=== PATIENT | female | born 1935 | race Caucasian/White ===

== ENCOUNTER 2018-07-08 08:45 | Inpatient (IN) | payer MEDICARE ==
[2018-07-02 15:37] LABS: ALBUMIN 3.6 G/DL (3.4-5.0); ALBUMIN/GLOBULIN RATIO 0.9 (1.1-1.5); ALKALINE PHOSPHATASE 87 IU/L (46-116); BLOOD UREA NITROGEN 24 MG/DL (7-18); BUN/CREATININE RATIO 16.4 (6.6-38.0); CALCIUM 9.3 MG/DL (8.5-10.1); CHLORIDE 105 MMOL/L (99-107); CREATININE 1.46 MG/DL (0.40-0.90); PRE OP ALT 67 U/L (30-65); PRE OP ANION GAP 10 (8-16); PRE OP AST 50 U/L (10-37); PRE OP BILIRUB, TOTAL 0.9 MG/DL (0.0-1.0); PRE OP GLUCOSE 124 MG/DL (70-104); PRE OP POTASSIUM 4.2 MMOL/L (3.4-5.1); PRE OP SODIUM 139 MMOL/L (135-145); TOTAL CARBON DIOXIDE 24.2 MMOL/L (24-32); TOTAL PROTEIN 7.6 G/DL (6.4-8.2); eGFR 34 ML/MIN
[~2018-07-08] VITALS: Ht 170.2 cm; Wt 103.0 kg
[2018-07-08] VITALS (16 sets, daily range): BP systolic 93–153; BP diastolic 48–73
[~2018-07-08 08:45] MED LIST: Cefazolin 2GM/50ML dext iso,osmotic IVPB IV ONE; DOCUMENT DATE & TIME OF BETA-BLOCKER PO ONE; FISH OIL 1,2001 EAC1 PO; FLEC50TA10 PO; LOP25T PO; NITR0.4T48 SL; SPIR25TA PO; UBID1CAP54 PO; famotidine 20mg tablet PO ONE; ringers solution, lacted 1,000 ML IV SCH; vancomycin inj 1,500 MG in normal saline 300ml IV soln IV ONE
[2018-07-08] MEDS ORDERED: tetracaine 1% (10mg/ml) pres. free inj. ONE (10:06)
[2018-07-08] MEDS ORDERED: ROPIVAcaine 0.5% (5mg/ml) 30ml vial ONE ×2 (10:06→10:10)
[2018-07-08] MEDS ORDERED: BUPIVAcaine/PF 7.5mg/ml (0.75%) 10ml vial ONE (10:06)
[2018-07-08] MEDS ORDERED: ketorolac trometh. 30mg/ml inj. ONE (10:10)
[2018-07-08] MEDS ORDERED: vancomycin 1,000mg inj ONE (10:10)
[2018-07-08 11:16] LABS: BASOPHILS % (AUTO) 0.3 % (0-1); EOSINOPHILS # (AUTO) 0.1 X10'3 (0-0.9); EOSINOPHILS % (AUTO) 1.5 % (0-6); HEMATOCRIT 40.4 % (35.0-45.0); LYMPHOCYTES # (AUTO) 1.3 X10'3 (1.1-4.8); LYMPHOCYTES % (AUTO) 26.9 % (21-51); MEAN CORPUSCULAR HEMOGLOBIN 32.6 PG (27.0-31.0); MEAN CORPUSCULAR HGB CONC 34.7 % (33.0-36.5); MEAN PLATELET VOLUME 7.9 FL (7.4-10.4); MONOCYTES # (AUTO) 0.4 X10'3 (0-0.9); MONOCYTES % (AUTO) 7.6 % (2-12); NEUTROPHILS # (AUTO) 3.2 X10'3 (1.8-7.7); NEUTROPHILS % (AUTO) 63.7 % (42-75); PLATELET COUNT 162 X10'3 (140-440); RED CELL DISTRIBUTION WIDTH 13.8 % (11.5-14.5)
[2018-07-08] MEDS ORDERED: diphenhydrAMINE 50 mg/ml inj ONE (12:03)
[2018-07-08] MEDS ORDERED: fentaNYL/PF 50MCG/1 ML 2ML syringe ONE (12:09)
[2018-07-08] MEDS ORDERED: MIDAZolam 1mg/ml 10ml vial ONE (12:09)
[2018-07-08] MEDS ORDERED: morphine /PF 1mg/ml 10ml inj. ONE (12:09)
[2018-07-08] MEDS ORDERED: ringers solution, lacted 1,000 ML IV SCH (12:53)
[2018-07-08] MEDS ORDERED: diphenhydrAMINE 50 mg/ml inj IV PRN (12:55)
[2018-07-08] MEDS ORDERED: morphine 4 MG/ML inj SYRINge IV PRN ×2 (12:55)
[2018-07-08] MEDS ORDERED: ondansetron/PF 4mg/2ml inj IV PRN ×3 (12:55→15:10)
[2018-07-08] MEDS ORDERED: fentaNYL/PF 50MCG/1 ML 2ML syringe IV PRN ×2 (12:55)
[2018-07-08] MEDS ORDERED: labetalol 5mg/ml 20ml inj. IV PRN (12:55)
[2018-07-08] MEDS ORDERED: hydrALAZINE 20mg/ml inj. IV PRN (12:55)
[2018-07-08] MEDS: potassium cl 20mEq in 1/2 NS 1,000 ML IV SCH (15:07)
[2018-07-08] MEDS ORDERED: bisacodyl 10mg suppository rectal RC PRN (15:10)
[2018-07-08] MEDS ORDERED: diphenhydrAMINE 25mg capsule PO PRN ×2 (15:10)
[2018-07-08] MEDS ORDERED: HYDROmorphone inj. 0.5 MG/0.5 ML DISP.SYRIN IV PRN ×2 (15:10)
[2018-07-08] MEDS ORDERED: magnesium hydroxide 30ml (MOM) UD suspension PO PRN (15:10)
[2018-07-08] MEDS ORDERED: nitroGLYCERIN 0.4mg SUBLingual tab SL PRN (15:10)
[2018-07-08] MEDS ORDERED: acetaminophen 325mg tablet PO PRN (15:10)
[2018-07-08] MEDS: ceFAZolin 1GM/D5W- ADD-VANTAGE 50 ML IV SCH (16:00)
[2018-07-08 18:10] LABS: CREATININE 1.14 MG/DL (0.40-0.90); POTASSIUM 5.3 MMOL/L (3.5-5.1); eGFR 46 ML/MIN
[2018-07-08] MEDS ORDERED: vancomycin/NS 1 GM ADD-VANTAGE 250 ML IV SCH (20:00)
[2018-07-08] MEDS: ketorolac tromethamine 15mg/ml inj. IV SCH (20:00)
[2018-07-08] MEDS: acetaminophen 325mg tablet PO SCH (20:00)
[2018-07-08] MEDS: sennosides 8.6mg tablet PO SCH (20:30)
[2018-07-08] MEDS: gabapentin 300mg capsule PO SCH (20:30)
[2018-07-09] MEDS: ceFAZolin 1GM/D5W- ADD-VANTAGE 50 ML IV SCH (00:04)
[2018-07-09 02:00] VITALS: BP 108/54
[2018-07-09] MEDS: acetaminophen 325mg tablet PO SCH ×4 (02:34→20:23)
[2018-07-09] MEDS: ketorolac tromethamine 15mg/ml inj. IV SCH ×3 (02:34→14:11)
[2018-07-09] MEDS: potassium cl 20mEq in 1/2 NS 1,000 ML IV SCH ×4 (02:41→23:07)
[2018-07-09 05:24] LABS: BASOPHILS % (AUTO) 0 % (0-1); EOSINOPHILS # (AUTO) 0.1 X10'3 (0-0.9); EOSINOPHILS % (AUTO) 1.2 % (0-6); HEMOGLOBIN 12.6 g/dl (12.0-16.0); LYMPHOCYTES # (AUTO) 0.5 X10'3 (1.1-4.8); LYMPHOCYTES % (AUTO) 5.8 % (21-51); MEAN CORPUSCULAR HEMOGLOBIN 32.1 PG (27.0-31.0); MEAN CORPUSCULAR HGB CONC 33.9 % (33.0-36.5); MEAN CORPUSCULAR VOLUME 94.5 FL (78-98); MEAN PLATELET VOLUME 7.8 FL (7.4-10.4); MONOCYTES # (AUTO) 0.4 X10'3 (0-0.9); MONOCYTES % (AUTO) 4.8 % (2-12); NEUTROPHILS # (AUTO) 8.3 X10'3 (1.8-7.7); NEUTROPHILS % (AUTO) 88.2 % (42-75); PLATELET COUNT 138 X10'3 (140-440); RED BLOOD COUNT 3.92 X10'6 (4.20-5.60); RED CELL DISTRIBUTION WIDTH 13.6 % (11.5-14.5); WHITE BLOOD COUNT 9.4 X10'3 (4.5-11.0)
[2018-07-09] MEDS: oxyCODONE IR 5mg (immed. release) tablet PO PRN ×4 (05:40→16:49)
[2018-07-09 05:44] LABS: ANION GAP 7 (8-16); CHLORIDE 108 MMOL/L (99-107); SODIUM 138 MMOL/L (135-145); TOTAL CARBON DIOXIDE 23.1 MMOL/L (24-32)
[2018-07-09 06:00] VITALS: BP 108/57
[2018-07-09 06:10] LABS: POTASSIUM 6.1 MMOL/L (3.5-5.1)
[2018-07-09] MEDS ORDERED: FATTY ACIDS PO SCH (08:00)
[2018-07-09] MEDS ORDERED: FISH OIL PO SCH (08:00)
[2018-07-09] MEDS: spironolactone 25 MG tablet PO SCH (08:00)
[2018-07-09] MEDS: metoprolol tartrate 50mg tablet PO SCH (08:00)
[2018-07-09] MEDS: flecainide 50mg tablet PO SCH (08:00)
[2018-07-09] MEDS ORDERED: OMEGA PO SCH (08:00)
[2018-07-09] MEDS: gabapentin 300mg capsule PO SCH ×3 (08:19→20:23)
[2018-07-09] MEDS: aspirin 325mg tablet PO SCH (08:19)
[2018-07-09 10:00] VITALS: BP 104/38
[2018-07-09 15:00] VITALS: BP 111/34
[2018-07-09 18:00] VITALS: BP 110/47
[2018-07-09] MEDS ORDERED: celeCOXIB 100mg capsule PO SCH (20:00)
[2018-07-09] MEDS: celeCOXIB 100mg capsule PO SCH (20:23)
[2018-07-09] MEDS: sennosides 8.6mg tablet PO SCH (20:23)
[2018-07-09 22:00] VITALS: BP 111/52
[2018-07-10] MEDS: acetaminophen 325mg tablet PO SCH ×3 (02:00→13:58)
[2018-07-10] MEDS: oxyCODONE IR 5mg (immed. release) tablet PO PRN ×4 (05:31→17:50)
[2018-07-10 05:46] LABS: BASOPHILS % (AUTO) 0.2 % (0-1); EOSINOPHILS # (AUTO) 0.1 X10'3 (0-0.9); EOSINOPHILS % (AUTO) 2.1 % (0-6); HEMATOCRIT 28.2 % (35.0-45.0); HEMOGLOBIN 9.7 g/dl (12.0-16.0); LYMPHOCYTES # (AUTO) 1.6 X10'3 (1.1-4.8); LYMPHOCYTES % (AUTO) 24.3 % (21-51); MEAN CORPUSCULAR HEMOGLOBIN 32.4 PG (27.0-31.0); MEAN CORPUSCULAR HGB CONC 34.3 % (33.0-36.5); MEAN CORPUSCULAR VOLUME 94.6 FL (78-98); MEAN PLATELET VOLUME 7.7 FL (7.4-10.4); MONOCYTES # (AUTO) 0.7 X10'3 (0-0.9); MONOCYTES % (AUTO) 11.1 % (2-12); NEUTROPHILS # (AUTO) 4.2 X10'3 (1.8-7.7); NEUTROPHILS % (AUTO) 62.3 % (42-75); PLATELET COUNT 110 X10'3 (140-440); RED BLOOD COUNT 2.98 X10'6 (4.20-5.60); RED CELL DISTRIBUTION WIDTH 13.8 % (11.5-14.5); WHITE BLOOD COUNT 6.7 X10'3 (4.5-11.0)
[2018-07-10 06:00] VITALS: BP 128/50
[2018-07-10] MEDS: spironolactone 25 MG tablet PO SCH (07:28)
[2018-07-10] MEDS: metoprolol tartrate 50mg tablet PO SCH (07:38)
[2018-07-10] MEDS: aspirin 325mg tablet PO SCH (07:38)
[2018-07-10] MEDS: gabapentin 300mg capsule PO SCH ×3 (07:39→20:20)
[2018-07-10] MEDS: celeCOXIB 100mg capsule PO SCH ×2 (07:39→20:20)
[2018-07-10] MEDS: flecainide 50mg tablet PO SCH (07:40)
[2018-07-10 10:00] VITALS: BP 116/55
[2018-07-10] MEDS ORDERED: acetaminophen 325mg tablet PO PRN (15:10)
[2018-07-10 18:00] VITALS: BP 102/47
[2018-07-10] MEDS: sennosides 8.6mg tablet PO SCH (20:20)
[2018-07-10 21:00] VITALS: BP 124/53
[2018-07-11] MEDS: oxyCODONE IR 5mg (immed. release) tablet PO PRN ×3 (02:12→12:11)
[2018-07-11 05:48] LABS: BASOPHILS % (AUTO) 0.4 % (0-1); EOSINOPHILS # (AUTO) 0.2 X10'3 (0-0.9); EOSINOPHILS % (AUTO) 2.3 % (0-6); HEMATOCRIT 31.6 % (35.0-45.0); HEMOGLOBIN 10.8 g/dl (12.0-16.0); LYMPHOCYTES # (AUTO) 1.4 X10'3 (1.1-4.8); LYMPHOCYTES % (AUTO) 21.5 % (21-51); MEAN CORPUSCULAR HEMOGLOBIN 32.4 PG (27.0-31.0); MEAN CORPUSCULAR HGB CONC 34.2 % (33.0-36.5); MEAN CORPUSCULAR VOLUME 94.8 FL (78-98); MONOCYTES # (AUTO) 0.6 X10'3 (0-0.9); MONOCYTES % (AUTO) 9.3 % (2-12); NEUTROPHILS # (AUTO) 4.3 X10'3 (1.8-7.7); NEUTROPHILS % (AUTO) 66.5 % (42-75); PLATELET COUNT 124 X10'3 (140-440); RED BLOOD COUNT 3.33 X10'6 (4.20-5.60); RED CELL DISTRIBUTION WIDTH 13.6 % (11.5-14.5); WHITE BLOOD COUNT 6.5 X10'3 (4.5-11.0)
[2018-07-11 06:00] VITALS: BP 126/47
[2018-07-11] MEDS: celeCOXIB 100mg capsule PO SCH (07:57)
[2018-07-11] MEDS: aspirin 325mg tablet PO SCH (07:58)
[2018-07-11] MEDS: gabapentin 300mg capsule PO SCH (07:58)
[2018-07-11] MEDS: metoprolol tartrate 50mg tablet PO SCH (07:58)
[2018-07-11] MEDS: spironolactone 25 MG tablet PO SCH (07:58)
[2018-07-11] MEDS: flecainide 50mg tablet PO SCH (07:58)
[2018-07-11 10:00] VITALS: BP 135/45
== END 2018-07-11 12:45 | DRG 470 ==
LOC: PAS IN 08:45 → EDSTATUS 12:00 → ORTHO 4S 16:15
PROVIDERS: ADMIT Orthopaedic Surgery; ATTEND Orthopaedic Surgery
PROC: 3E0T3BZ Introduction of Anesthetic Agent into Peripheral Nerves and Plexi, Percutaneous Approach (ICD-10-PCS; 2018-07-08)
PROC: 8E0YXCZ Robotic Assisted Procedure of Lower Extremity (ICD-10-PCS; 2018-07-08)
PROC: 8E0YXBZ Computer Assisted Procedure of Lower Extremity (ICD-10-PCS; 2018-07-08)
PROC: 0SRC0J9 Replacement of Right Knee Joint with Synthetic Substitute, Cemented, Open Approach (ICD-10-PCS; principal; 2018-07-08 12:03)
DX: M17.11 Unilateral primary osteoarthritis, right knee (principal); D62 Acute posthemorrhagic anemia; Z96.611 Presence of right artificial shoulder joint; G47.30 Sleep apnea, unspecified; I48.2 Chronic atrial fibrillation; M47.816 Spondylosis without myelopathy or radiculopathy, lumbar region; K21.9 Gastro-esophageal reflux disease without esophagitis; I12.9 Hypertensive chronic kidney disease with stage 1 through stage 4 chronic kidney disease, or unspecified chronic kidney disease; Z60.2 Problems related to living alone; E87.5 Hyperkalemia; N18.3 Chronic kidney disease, stage 3 (moderate); Z91.041 Radiographic dye allergy status; Z88.5 Allergy status to narcotic agent; Z88.8 Allergy status to other drugs, medicaments and biological substances; Z91.048 Other nonmedicinal substance allergy status; Z72.89 Other problems related to lifestyle; Z79.899 Other long term (current) drug therapy; Z95.810 Presence of automatic (implantable) cardiac defibrillator
CPT/HCPCS: 36415; 80051; 80053; 82565; 84132; 85025; 87070; 97110; 97116; 97162; 97530; A6455; A7000; C1713; C1758; C1776; J0690; J1200; J1885; J2250; J2274; J2795; J3010; J3370; J3490; J7030; J7120

== ENCOUNTER 2018-08-21 11:27 | Observation (INO) | payer MEDICARE ==
[~2018-08-21] VITALS: Ht 171.4 cm; Wt 101.8 kg
[~2018-08-21 11:27] MED LIST changes: -Cefazolin 2GM/50ML dext iso,osmotic IVPB IV ONE; -DOCUMENT DATE & TIME OF BETA-BLOCKER PO ONE; -UBID1CAP54 PO; -famotidine 20mg tablet PO ONE; -ringers solution, lacted 1,000 ML IV SCH; -vancomycin inj 1,500 MG in normal saline 300ml IV soln IV ONE
[2018-08-21 12:00] LABS: HEMOGLOBIN 12.6 g/dl (12.0-16.0); MEAN CORPUSCULAR HEMOGLOBIN 31.8 PG (27.0-31.0); MEAN CORPUSCULAR HGB CONC 34.1 % (33.0-36.5); MEAN CORPUSCULAR VOLUME 93.2 FL (78-98); MEAN PLATELET VOLUME 7.7 FL (7.4-10.4); NEUTROPHILS % (AUTO) 71.8 % (42-75); PLATELET COUNT 184 X10'3 (140-440); RED BLOOD COUNT 3.96 X10'6 (4.20-5.60); RED CELL DISTRIBUTION WIDTH 13.7 % (11.5-14.5); WHITE BLOOD COUNT 5.5 X10'3 (4.5-11.0)
[2018-08-21 12:01] LABS: BASOPHILS # (AUTO) 0.1 X10'3 (0-0.2); BASOPHILS % (AUTO) 1.6 % (0-1); EOSINOPHILS # (AUTO) 0.1 X10'3 (0-0.9); EOSINOPHILS % (AUTO) 1.3 % (0-6); LYMPHOCYTES # (AUTO) 1.1 X10'3 (1.1-4.8); LYMPHOCYTES % (AUTO) 19.6 % (21-51); MONOCYTES # (AUTO) 0.3 X10'3 (0-0.9); MONOCYTES % (AUTO) 5.7 % (2-12); NEUTROPHILS # (AUTO) 3.9 X10'3 (1.8-7.7)
[2018-08-21 12:09] LABS: ALANINE AMINOTRANSFERASE 28 U/L (12-78); ALBUMIN 3.2 G/DL (3.4-5.0); ALBUMIN/GLOBULIN RATIO 0.8 (1.1-1.5); ALKALINE PHOSPHATASE 107 IU/L (46-116); ANION GAP 7 (8-16); ASPARTATE AMINO TRANSFERASE 29 U/L (10-37); BILIRUBIN,TOTAL 0.7 MG/DL (0.1-1.0); BLOOD UREA NITROGEN 21 MG/DL (7-18); BUN/CREATININE RATIO 14.7 (6.6-38.0); CALCIUM 9.1 MG/DL (8.5-10.1); CHLORIDE 107 MMOL/L (99-107); CREATININE 1.43 MG/DL (0.40-0.90); POTASSIUM 5.2 MMOL/L (3.5-5.1); SODIUM 142 MMOL/L (135-145); TOTAL CARBON DIOXIDE 27.6 MMOL/L (24-32); eGFR 35 ML/MIN
[2018-08-21 12:13] LABS: D-DIMER 28.94 MG/L FEU (0-0.50); INR 1.1 INR; PARTIAL THROMBOPLASTIN TIME 25 SECONDS (22-32); PROTHROMBIN TIME 11.4 SECONDS (9.0-12.0)
[2018-08-21 12:18] LABS: GLUCOSE 111 MG/DL (70-104)
[2018-08-21] MEDS ORDERED: enoxaparin 100mg/ml syringe SUBCUT ONE (12:20)
[2018-08-21] MEDS ORDERED: magnesium hydroxide 30ml (MOM) UD suspension PO PRN (13:30)
[2018-08-21] MEDS ORDERED: potassium Cl 40MEQ/NS 500ml 500 ML IV PRN ×2 (13:30)
[2018-08-21] MEDS ORDERED: magnesium 4gm in 100ml NS 100 ML IV PRN (13:30)
[2018-08-21] MEDS ORDERED: mag hydrox/Alum hydrox/simeth 30ml oral suspension PO PRN (13:30)
[2018-08-21] MEDS ORDERED: potassium Cl 20 mEq SR tablet PO PRN ×2 (13:30)
[2018-08-21] MEDS ORDERED: ondansetron/PF 4mg/2ml inj IV PRN (13:30)
[2018-08-21] MEDS ORDERED: acetaminophen 325mg tablet PO PRN (13:30)
[2018-08-21] MEDS ORDERED: magnesium Cl slow-release 64mg tablet PO PRN (13:30)
[2018-08-21] MEDS ORDERED: magnesium 1gm/100ml D5W IVPB 100 ML IV PRN (13:30)
[2018-08-21 16:00] VITALS: BP 173/64
[2018-08-21] MEDS ORDERED: nitroGLYCERIN 0.4mg SUBLingual tab SL PRN (19:45)
[2018-08-21 20:00] VITALS: BP 133/60
[2018-08-21] MEDS: enoxaparin 100mg/ml syringe SQ SCH (20:37)
[2018-08-22] VITALS: BP 141/63
[2018-08-22 05:34] LABS: EOSINOPHILS # (AUTO) 0.1 X10'3 (0-0.9); EOSINOPHILS % (AUTO) 2.5 % (0-6); HEMATOCRIT 35.3 % (35.0-45.0); HEMOGLOBIN 12.1 g/dl (12.0-16.0); LYMPHOCYTES # (AUTO) 1.4 X10'3 (1.1-4.8); LYMPHOCYTES % (AUTO) 30.4 % (21-51); MEAN CORPUSCULAR HGB CONC 34.4 % (33.0-36.5); MEAN PLATELET VOLUME 8.3 FL (7.4-10.4); MONOCYTES # (AUTO) 0.3 X10'3 (0-0.9); MONOCYTES % (AUTO) 6.1 % (2-12); NEUTROPHILS # (AUTO) 2.7 X10'3 (1.8-7.7); PLATELET COUNT 155 X10'3 (140-440); RED CELL DISTRIBUTION WIDTH 13.7 % (11.5-14.5); WHITE BLOOD COUNT 4.5 X10'3 (4.5-11.0)
[2018-08-22 05:55] LABS: ALBUMIN 3.1 G/DL (3.4-5.0); ANION GAP 13 (8-16); BLOOD UREA NITROGEN 18 MG/DL (7-18); BUN/CREATININE RATIO 14.1 (6.6-38.0); CALCIUM 8.9 MG/DL (8.5-10.1); CHLORIDE 108 MMOL/L (99-107); CREATININE 1.28 MG/DL (0.40-0.90); MAGNESIUM 1.9 MG/DL (1.5-2.4); SODIUM 143 MMOL/L (135-145); TOTAL CARBON DIOXIDE 22.4 MMOL/L (24-32); eGFR 40 ML/MIN
[2018-08-22 06:17] LABS: GLUCOSE 101 MG/DL (70-104)
[2018-08-22 06:56] VITALS: BP 152/74
[2018-08-22] MEDS ORDERED: spironolactone 25 MG tablet PO SCH (08:00)
[2018-08-22] MEDS ORDERED: K and/or MAG REPLACEMENT MC SCH (08:00)
[2018-08-22] MEDS ORDERED: metoprolol tartrate 25mg tablet PO SCH (08:00)
[2018-08-22] MEDS ORDERED: flecainide 50mg tablet PO SCH (08:00)
[2018-08-22] MEDS: enoxaparin 100mg/ml syringe SQ SCH (08:07)
[2018-08-22] MEDS ORDERED: DABI150C PO (11:01)
[2018-08-22] MEDS ORDERED: ENOX100D5 SQ (11:04)
[2018-08-22 11:30] VITALS: BP 155/81
== END 2018-08-22 14:32 | disposition home or self-care (01) ==
LOC: ER 11:28 → ED HOLD 13:28 → EDBEDREQ 14:57 → SUR 3N 16:00
PROVIDERS: ADMIT Hospitalist; ATTEND Hospitalist
DX: R06.02 Shortness of breath (principal); R07.89 Other chest pain; J44.9 Chronic obstructive pulmonary disease, unspecified; M81.0 Age-related osteoporosis without current pathological fracture; I48.91 Unspecified atrial fibrillation; G47.30 Sleep apnea, unspecified; F12.10 Cannabis abuse, uncomplicated; I10 Essential (primary) hypertension; E87.5 Hyperkalemia; M25.561 Pain in right knee; R05 Cough; R79.89 Other specified abnormal findings of blood chemistry; R79.1 Abnormal coagulation profile; Z86.711 Personal history of pulmonary embolism; Z96.611 Presence of right artificial shoulder joint; Z96.651 Presence of right artificial knee joint; Z95.0 Presence of cardiac pacemaker
CPT/HCPCS: 36415; 71045; 78582; 80048; 80053; 83735; 83880; 84132; 84484; 85025; 85379; 85610; 85730; 87070; 93005; 93306; 93970; 96372; 97116; 97161; 97530; 99285; A9539; A9540; G0378; J1650

== ENCOUNTER 2019-11-09 17:42 | Emergency (ER) | payer MEDICARE ==
[~2019-11-09] VITALS: Ht 172.7 cm; Wt 108.0 kg
[~2019-11-09 17:42] MED LIST changes: +DABI150C PO; +ENOX100D5 SQ; -FISH OIL 1,2001 EAC1 PO
[2019-11-09] MEDS ORDERED: TETanus/Pertussis (Acell)/Diphther VAC/PF (Tdap-Adult) 0.5ml syringe IMVAC ONE (18:05)
--- NOTE | 2019-11-09 18:19 | NUR ---
PT TAKEN TO CT VIA GURNEY BY CB. CONTINUE ICE TO FACE.
[2019-11-09 18:25] LABS: BASOPHILS % (AUTO) 0.9 % (0-1); EOSINOPHILS # (AUTO) 0.1 X10'3 (0-0.9); EOSINOPHILS % (AUTO) 1.4 % (0-6); HEMOGLOBIN 14.5 g/dl (12.0-16.0); LYMPHOCYTES # (AUTO) 1.4 X10'3 (1.1-4.8); LYMPHOCYTES % (AUTO) 29.8 % (21-51); MEAN CORPUSCULAR HEMOGLOBIN 32.6 PG (27.0-31.0); MEAN CORPUSCULAR HGB CONC 34.4 g/dL (33.0-36.5); MEAN CORPUSCULAR VOLUME 94.7 FL (78-98); MONOCYTES # (AUTO) 0.4 X10'3 (0-0.9); MONOCYTES % (AUTO) 8.7 % (2-12); NEUTROPHILS # (AUTO) 2.7 X10'3 (1.8-7.7); NEUTROPHILS % (AUTO) 59.2 % (42-75); PLATELET COUNT 147 X10'3 (140-440); RED BLOOD COUNT 4.44 X10'6 (4.20-5.60); RED CELL DISTRIBUTION WIDTH 13.3 % (11.5-14.5); WHITE BLOOD COUNT 4.6 X10'3 (4.5-11.0)
[2019-11-09 18:35] LABS: PARTIAL THROMBOPLASTIN TIME 27 SECONDS (22-32)
[2019-11-09 18:41] LABS: AMYLASE 82 U/L (25-115); CREATINE KINASE 77 U/L (26-192); LIPASE 270 U/L (73-393); TROPONIN I < 0.04 NG/ML (0.0-0.05)
[2019-11-09] MEDS ORDERED: acetaminophen 325mg tablet PO ONE (18:55)
[2019-11-09] MEDS ORDERED: AZIT-63 PO (19:32)
[2019-11-09 19:34] LABS: ALANINE AMINOTRANSFERASE 53 U/L (12-78); ALBUMIN 3.6 G/DL (3.4-5.0); ALKALINE PHOSPHATASE 96 IU/L (46-116); ANION GAP 8 (8-16); ASPARTATE AMINO TRANSFERASE 38 U/L (10-37); BILIRUBIN,TOTAL 0.6 MG/DL (0.1-1.0); BLOOD UREA NITROGEN 28 MG/DL (7-18); BUN/CREATININE RATIO 19.7 (6.6-38.0); CHLORIDE 107 MMOL/L (99-107); CREATININE 1.42 MG/DL (0.40-0.90); POTASSIUM 4.5 MMOL/L (3.5-5.1); SODIUM 140 MMOL/L (135-145); TOTAL CARBON DIOXIDE 25.1 MMOL/L (24-32); TOTAL PROTEIN 7.3 G/DL (6.4-8.2); eGFR 35 ML/MIN
[2019-11-09] MEDS ORDERED: azithromycin 250mg tablet PO ONE (19:35)
[2019-11-09 19:47] VITALS: BP 179/83
[2019-11-09 19:55] LABS: GLUCOSE 123 MG/DL (70-104)
== END 2019-11-09 20:01 | disposition home or self-care (01) ==
LOC: ER 17:43
DX: S02.2XXA Fracture of nasal bones, initial encounter for closed fracture (principal); S02.85XA Fracture of orbit, unspecified, initial encounter for closed fracture; S00.531A Contusion of lip, initial encounter; I48.91 Unspecified atrial fibrillation; I10 Essential (primary) hypertension; J44.9 Chronic obstructive pulmonary disease, unspecified; G47.30 Sleep apnea, unspecified; F10.99 Alcohol use, unspecified with unspecified alcohol-induced disorder; F12.90 Cannabis use, unspecified, uncomplicated; M81.0 Age-related osteoporosis without current pathological fracture; Z88.8 Allergy status to other drugs, medicaments and biological substances; Z88.5 Allergy status to narcotic agent; Z88.6 Allergy status to analgesic agent; Z79.899 Other long term (current) drug therapy; Z60.2 Problems related to living alone; Z86.711 Personal history of pulmonary embolism; W01.0XXA Fall on same level from slipping, tripping and stumbling without subsequent striking against object, initial encounter; Y93.01 Activity, walking, marching and hiking; Y92.89 Other specified places as the place of occurrence of the external cause; Y99.8 Other external cause status; Y90.9 Presence of alcohol in blood, level not specified
CPT/HCPCS: 36415; 70450; 70486; 71045; 80053; 82150; 82550; 83690; 84484; 85025; 85610; 85730; 90471; 90715; 93005; 99284

== ENCOUNTER 2021-02-07 06:33 | Emergency (ER) | payer MEDICARE ==
[~2021-02-07] VITALS: Ht 172.7 cm; Wt 100.0 kg
--- NOTE | 2021-02-07 07:12 | NUR ---
PT STATES SHE HAS BEEN HAVING URGENCY AND FREQUENCY OF URINE THIS MORNING. ADD A UA TO THE LAB, NOTIFY DR PATEL.
[2021-02-07 07:26] LABS: BASOPHILS % (AUTO) 0.5 % (0-1); EOSINOPHILS # (AUTO) 0.1 X10'3 (0-0.9); EOSINOPHILS % (AUTO) 1.8 % (0-6); HEMATOCRIT 41.2 % (35.0-45.0); HEMOGLOBIN 13.9 g/dl (12.0-16.0); LYMPHOCYTES # (AUTO) 1.7 X10'3 (1.1-4.8); LYMPHOCYTES % (AUTO) 37.4 % (21-51); MEAN CORPUSCULAR HGB CONC 33.8 g/dL (33.0-36.5); MEAN CORPUSCULAR VOLUME 94.9 FL (78-98); MEAN PLATELET VOLUME 8.2 FL (7.4-10.4); MONOCYTES # (AUTO) 0.4 X10'3 (0-0.9); MONOCYTES % (AUTO) 7.8 % (2-12); NEUTROPHILS # (AUTO) 2.4 X10'3 (1.8-7.7); NEUTROPHILS % (AUTO) 52.5 % (42-75); PLATELET COUNT 150 X10'3 (140-440); RED BLOOD COUNT 4.34 X10'6 (4.20-5.60); RED CELL DISTRIBUTION WIDTH 13.4 % (11.5-14.5); WHITE BLOOD COUNT 4.6 X10'3 (4.5-11.0)
[2021-02-07 07:30] LABS: D-DIMER 1.77 MG/L FEU (0-0.50)
[2021-02-07 07:35] LABS: ALANINE AMINOTRANSFERASE 51 U/L (12-78); ALBUMIN 3.4 G/DL (3.4-5.0); ALBUMIN/GLOBULIN RATIO 0.9 (1.1-1.5); ALKALINE PHOSPHATASE 84 IU/L (46-116); ANION GAP 13 (8-16); ASPARTATE AMINO TRANSFERASE 36 U/L (10-37); BILIRUBIN,TOTAL 0.7 MG/DL (0.1-1.0); BLOOD UREA NITROGEN 22 MG/DL (7-18); BUN/CREATININE RATIO 15.9 (6.6-38.0); CALCIUM 9.7 MG/DL (8.5-10.1); CHLORIDE 107 MMOL/L (99-107); CREATININE 1.38 MG/DL (0.40-0.90); POTASSIUM 4.8 MMOL/L (3.5-5.1); SODIUM 142 MMOL/L (135-145); TOTAL CARBON DIOXIDE 22.5 MMOL/L (24-32); TOTAL PROTEIN 7.2 G/DL (6.4-8.2); eGFR 36 ML/MIN
[2021-02-07 07:42] LABS: GLUCOSE 129 MG/DL (70-104)
[2021-02-07 08:22] LABS: CLARITY,URINE SLIGHTLY CLOUDY (Clear); COLOR,URINE YELLOW (Yellow); GLUCOSE, URINE NEGATIVE (Neg); KETONES,URINE NEGATIVE (Neg); LEUKOCYTE ESTERASE ,URINE TRACE (Neg); NITRITES, URINE NEGATIVE (Neg); OCCULT BLOOD,URINE NEGATIVE (Neg); PH,URINE 7.5 (4.8-8.0); PROTEIN,URINE NEGATIVE (Neg); UROBILINOGEN,URINE 0.2 E.U/dL (0.2-1.0)
[2021-02-07 08:23] LABS: UA COLLECTION TYPE CLN CATCH MIDSTREAM
[2021-02-07 08:31] LABS: MUCUS STRANDS FEW /LPF (Neg); SQUAMOUS EPITHELIAL CELL,UR FEW /LPF (FEW)
[2021-02-07 08:32] LABS: BACTERIA,URINE FEW /HPF (Neg); RBC,URINE 0-2 /HPF (0-2); TRANSITIONAL EPI CELLS,URINE FEW /HPF; WBC,URINE 0-4 /HPF (0-4)
[2021-02-07] MEDS ORDERED: iohexol 350MG/ML 100ml bottle IV ONE (09:02)
[2021-02-07 09:38] VITALS: BP 128/63
--- NOTE | 2021-02-07 10:05 | NUR ---
US TO ROOM FOR PROCDEDURE. PT IS ALLERGIC TO THE CONTRAST SO WILL NOT BE GETTING THE CTA.
== END 2021-02-07 12:09 | disposition home or self-care (01) ==
LOC: ER 06:34
DX: R07.89 Other chest pain (principal); R06.00 Dyspnea, unspecified; R06.02 Shortness of breath; I48.91 Unspecified atrial fibrillation; I10 Essential (primary) hypertension; J44.9 Chronic obstructive pulmonary disease, unspecified; F12.90 Cannabis use, unspecified, uncomplicated; Z86.711 Personal history of pulmonary embolism; Z95.0 Presence of cardiac pacemaker; Z98.890 Other specified postprocedural states; Z72.89 Other problems related to lifestyle; Z60.2 Problems related to living alone; Z88.8 Allergy status to other drugs, medicaments and biological substances; Z79.899 Other long term (current) drug therapy
CPT/HCPCS: 36415; 71045; 80053; 81001; 83880; 84484; 85025; 85379; 87088; 93005; 93970; 99285; Q9967

== ENCOUNTER 2022-02-15 10:51 | Emergency (ER) | payer MEDICARE ==
[~2022-02-15] VITALS: Ht 172.7 cm; Wt 100.0 kg
[2022-02-15] MEDS ORDERED: APIX2.5T PO (11:20)
[2022-02-15] MEDS ORDERED: METO-467 PO (11:20)
[2022-02-15 11:30] LABS: BASOPHILS % (AUTO) 0.4 % (0-1); EOSINOPHILS % (AUTO) 1.1 % (0-6); HEMATOCRIT 43.9 % (35.0-45.0); LYMPHOCYTES # (AUTO) 1.4 X10'3 (1.1-4.8); LYMPHOCYTES % (AUTO) 31.9 % (21-51); MEAN CORPUSCULAR HEMOGLOBIN 32.1 PG (27.0-31.0); MEAN CORPUSCULAR HGB CONC 34.1 g/dL (33.0-36.5); MEAN CORPUSCULAR VOLUME 94.1 FL (78-98); MEAN PLATELET VOLUME 7.8 FL (7.4-10.4); MONOCYTES # (AUTO) 0.4 X10'3 (0-0.9); MONOCYTES % (AUTO) 8.2 % (2-12); NEUTROPHILS # (AUTO) 2.6 X10'3 (1.8-7.7); NEUTROPHILS % (AUTO) 58.4 % (42-75); PLATELET COUNT 157 X10'3 (140-440); RED BLOOD COUNT 4.67 X10'6 (4.20-5.60); RED CELL DISTRIBUTION WIDTH 13.5 % (11.5-14.5); WHITE BLOOD COUNT 4.5 X10'3 (4.5-11.0)
[2022-02-15 11:46] LABS: ALANINE AMINOTRANSFERASE 58 U/L (12-78); ALBUMIN 3.8 G/DL (3.4-5.0); ALKALINE PHOSPHATASE 74 IU/L (46-116); ANION GAP 8 (8-16); ASPARTATE AMINO TRANSFERASE 41 U/L (10-37); BILIRUBIN,TOTAL 1.1 MG/DL (0.1-1.0); BLOOD UREA NITROGEN 28 MG/DL (7-18); BUN/CREATININE RATIO 19.9 (6.6-38.0); CALCIUM 9.4 MG/DL (8.5-10.1); CHLORIDE 107 MMOL/L (99-107); CREATININE 1.41 MG/DL (0.40-0.90); POTASSIUM 5.1 MMOL/L (3.5-5.1); SODIUM 140 MMOL/L (135-145); TOTAL CARBON DIOXIDE 24.6 MMOL/L (24-32); TOTAL PROTEIN 7.7 G/DL (6.4-8.2); eGFR 35 ML/MIN
[2022-02-15 12:02] LABS: GLUCOSE 110 MG/DL (70-104)
[2022-02-15] MEDS ORDERED: furosemide 10 MG/1 ML 10ml inj IV ONE (12:35)
[2022-02-15 14:01] VITALS: BP 178/71
== END 2022-02-15 14:53 | disposition home or self-care (01) ==
LOC: ER 10:51
DX: R06.02 Shortness of breath (principal); R07.89 Other chest pain; I48.91 Unspecified atrial fibrillation; I10 Essential (primary) hypertension; J44.9 Chronic obstructive pulmonary disease, unspecified; F12.90 Cannabis use, unspecified, uncomplicated; Z86.711 Personal history of pulmonary embolism; Z95.0 Presence of cardiac pacemaker; Z98.890 Other specified postprocedural states; Z72.89 Other problems related to lifestyle; Z60.2 Problems related to living alone; Z88.8 Allergy status to other drugs, medicaments and biological substances; Z79.899 Other long term (current) drug therapy
CPT/HCPCS: 36415; 71045; 80053; 83880; 84484; 85025; 93005; 99285

== ENCOUNTER 2022-06-15 09:08 | Emergency (ER) | payer MEDICARE ==
[~2022-06-15] VITALS: Ht 172.7 cm; Wt 98.4 kg
[~2022-06-15 09:08] MED LIST changes: +APIX2.5T PO; -DABI150C PO; -ENOX100D5 SQ; -LOP25T PO; +METO-467 PO
[2022-06-15] MEDS ORDERED: acetaminophen 325mg tablet PO ONE (09:30)
--- NOTE | 2022-06-15 09:39 | NUR ---
radiology at bedside.
--- NOTE | 2022-06-15 10:34 | NUR ---
patient off trauma alert.
[2022-06-15 12:41] VITALS: BP 156/71
--- NOTE | 2022-06-18 12:16 | NUR ---
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 Patient stated that she would try to come back to ER today.
== END 2022-06-15 12:42 | disposition home or self-care (01) ==
LOC: ER 09:09
DX: S80.02XA Contusion of left knee, initial encounter (principal); S50.12XA Contusion of left forearm, initial encounter; S60.212A Contusion of left wrist, initial encounter; I11.9 Hypertensive heart disease without heart failure; J44.9 Chronic obstructive pulmonary disease, unspecified; F12.10 Cannabis abuse, uncomplicated; Z95.3 Presence of xenogenic heart valve; Z79.899 Other long term (current) drug therapy; W18.39XA Other fall on same level, initial encounter; Y93.89 Activity, other specified; Y92.89 Other specified places as the place of occurrence of the external cause; Y99.8 Other external cause status; S09.90XA Unspecified injury of head, initial encounter; S13.9XXA Sprain of joints and ligaments of unspecified parts of neck, initial encounter
CPT/HCPCS: 29125; 70450; 72125; 73110; 73564; 99284; L3908

== ENCOUNTER 2022-06-18 14:15 | Emergency (ER) | payer MEDICARE ==
[~2022-06-18] VITALS: Ht 172.7 cm; Wt 99.5 kg
[2022-06-18 14:16] VITALS: BP 159/81
== END 2022-06-18 16:02 | disposition home or self-care (01) ==
LOC: ER 14:15
DX: S62.122A Displaced fracture of lunate [semilunar], left wrist, initial encounter for closed fracture (principal); M25.532 Pain in left wrist; W19.XXXA Unspecified fall, initial encounter; Y93.89 Activity, other specified; Y92.89 Other specified places as the place of occurrence of the external cause; Y99.8 Other external cause status
CPT/HCPCS: 29125; 99283; A6449

== ENCOUNTER 2023-02-12 14:02 | Emergency (ER) | payer MEDICARE ==
[~2023-02-12] VITALS: Ht 172.7 cm; Wt 98.0 kg
[2023-02-12 14:11] VITALS: BP 164/88
[2023-02-12] MEDS ORDERED: acetaminophen 325mg tablet PO ONE (14:30)
== END 2023-02-12 17:06 | disposition home or self-care (01) ==
LOC: ER 14:02
DX: M48.32 Traumatic spondylopathy, cervical region (principal); I10 Essential (primary) hypertension; J44.9 Chronic obstructive pulmonary disease, unspecified; F12.90 Cannabis use, unspecified, uncomplicated; Z91.041 Radiographic dye allergy status; Z88.8 Allergy status to other drugs, medicaments and biological substances; Z91.09 Other allergy status, other than to drugs and biological substances; W19.XXXA Unspecified fall, initial encounter; Y93.89 Activity, other specified; Y92.89 Other specified places as the place of occurrence of the external cause; Y99.8 Other external cause status
CPT/HCPCS: 70450; 72125; 73564; 99284

== ENCOUNTER 2024-08-20 05:32 | Day surgery (SDC) | payer MEDICARE ==
[2024-08-13 15:10] LABS: BASOPHILS % (AUTO) 0.4 % (0-1); EOSINOPHILS # (AUTO) 0.1 X10'3 (0-0.9); EOSINOPHILS % (AUTO) 2.2 % (0-6); LYMPHOCYTES # (AUTO) 1.3 X10'3 (1.1-4.8); MEAN CORPUSCULAR HEMOGLOBIN 32.7 PG (27.0-31.0); MEAN CORPUSCULAR HGB CONC 34.3 g/dL (33.0-36.5); MEAN CORPUSCULAR VOLUME 95.5 FL (78-98); MEAN PLATELET VOLUME 7.8 FL (7.4-10.4); MONOCYTES # (AUTO) 0.5 X10'3 (0-0.9); MONOCYTES % (AUTO) 8.5 % (2-12); NEUTROPHILS # (AUTO) 3.9 X10'3 (1.8-7.7); NEUTROPHILS % (AUTO) 66.9 % (42-75); PRE OP HEMOGLOBIN 14.4 g/dL (12.0-16.0); PRE OP PLATELET COUNT 157 X10'3 (140-440); PRE OP WHITE BLOOD COUNT 5.9 10'3 (4.8-10.8); RED CELL DISTRIBUTION WIDTH 13.7 % (11.5-14.5)
[2024-08-13 15:16] LABS: BILIRUBIN,URINE NEGATIVE (Neg); CLARITY,URINE CLEAR (Clear); COLOR,URINE YELLOW (Yellow); GLUCOSE, URINE NEGATIVE (Neg); KETONES,URINE NEGATIVE (Neg); LEUKOCYTE ESTERASE ,URINE NEGATIVE (Neg); NITRITES, URINE NEGATIVE (Neg); OCCULT BLOOD,URINE NEGATIVE (Neg); PROTEIN,URINE NEGATIVE (Neg); UROBILINOGEN,URINE 0.2 E.U/dL (0.2-1.0)
[2024-08-13 15:18] LABS: UA COLLECTION TYPE CLN CATCH MIDSTREAM
[2024-08-13 15:28] LABS: ALBUMIN 3.5 G/DL (3.4-5.0); ALBUMIN/GLOBULIN RATIO 0.9 (1.1-1.5); ALKALINE PHOSPHATASE 80 IU/L (46-116); BLOOD UREA NITROGEN 49 MG/DL (7-18); BUN/CREATININE RATIO 27.8 (10.0-20.0); CALCIUM 9.1 MG/DL (8.5-10.1); CHLORIDE 105 MMOL/L (99-107); CREATININE 1.76 MG/DL (0.40-0.90); PRE OP ALT 38 U/L (30-65); PRE OP ANION GAP 8 (8-16); PRE OP AST 30 U/L (10-37); PRE OP BILIRUB, TOTAL 0.8 MG/DL (0.0-1.0); PRE OP POTASSIUM 4.9 MMOL/L (3.4-5.1); PRE OP SODIUM 140 MMOL/L (135-145); TOTAL CARBON DIOXIDE 27.3 MMOL/L (24-32); TOTAL PROTEIN 7.4 G/DL (6.4-8.2); eGFR 27 ML/MIN
[2024-08-13 15:42] LABS: PRE OP GLUCOSE 115 MG/DL (70-104)
[~2024-08-20] VITALS: Ht 167.6 cm; Wt 99.2 kg
[2024-08-20] VITALS (7 sets, daily range): BP systolic 124–160; BP diastolic 60–78; PULSE 60–69; RESP 16–20; TEMP 97.7; O2SAT 94–98
[2024-08-20] MEDS: DOCUMENT DATE & TIME OF BETA-BLOCKER PO ONE (05:00)
[~2024-08-20 05:32] MED LIST changes: -APIX2.5T PO; +COQ10; +MAGNESIUM; -NITR0.4T48 SL; +OCUVITE; +TORS5TAB11 PO; +TYLENOL; +VITAMIN D3; +cefazolin 2gm/D5W 100mL 100 ML IV ONE; +normal saline 1000ml 500 ML IV SCH
[2024-08-20] MEDS ORDERED: bacitracin 15gm ointment TP ONE (06:42)
[2024-08-20] MEDS ORDERED: BUPIVAcaine 2.5mg/ml inj 50ml vial (contains preservative) ONE ×2 (06:42→07:43)
[2024-08-20] MEDS: famotidine 20mg tablet PO ONE (06:47)
[2024-08-20] MEDS ORDERED: ROPIVAcaine 0.5% (5mg/ml) 30ml vial ONE (07:04)
[2024-08-20] MEDS ORDERED: fentaNYL/PF 50MCG/1 ML 2ML syringe ONE (07:16)
[2024-08-20] MEDS ORDERED: midazolam 1 mg/ML 2ml injection ONE (07:16)
[2024-08-20] MEDS ORDERED: propofol inj 20 ML IV ONE (07:20)
[2024-08-20] MEDS ORDERED: sevoflurane 250ml liquid IH ONE (07:20)
[2024-08-20] MEDS ORDERED: LIDOcaine 2% (20mg/ml) 5ml vial ONE (07:21)
[2024-08-20] MEDS ORDERED: dexamethasone sod phosphate 4mg/ml inj. ONE (07:21)
[2024-08-20] MEDS ORDERED: morphine 4 MG/ML inj SYRINge IV PRN (07:25)
[2024-08-20] MEDS ORDERED: ringers solution, lacted 1,000 ML IV SCH (07:25)
[2024-08-20] MEDS ORDERED: meperidine/PF 25mg/ml syringe IV PRN ×3 (07:25)
[2024-08-20] MEDS ORDERED: proCHLORperazine 10 MG/2 ml inj IV PRN (07:25)
[2024-08-20] MEDS ORDERED: labetalol 20mg/4ml (5mg/ml) syringe IV PRN (07:25)
[2024-08-20] MEDS ORDERED: enalaprilat dihydrate 2.5mg/2ml vial IV PRN (07:25)
[2024-08-20] MEDS ORDERED: ondansetron/PF 4mg/2ml inj IV PRN (07:25)
[2024-08-20] MEDS ORDERED: morphine 2 MG/ML inj. syringe IV PRN (07:25)
[2024-08-20] MEDS ORDERED: acetaminophen 1,000mg/100ml IV 100 ML IV ONE (07:38)
== END 2024-08-20 09:28 | disposition home or self-care (01) ==
LOC: PAS 05:32
PROVIDERS: ATTEND Podiatrist Foot & Ankle Surgery
DX: M79.671 Pain in right foot (principal); I13.0 Hypertensive heart and chronic kidney disease with heart failure and stage 1 through stage 4 chronic kidney disease, or unspecified chronic kidney disease; N18.4 Chronic kidney disease, stage 4 (severe); I50.9 Heart failure, unspecified; J44.9 Chronic obstructive pulmonary disease, unspecified; G47.33 Obstructive sleep apnea (adult) (pediatric); M19.90 Unspecified osteoarthritis, unspecified site; Z86.718 Personal history of other venous thrombosis and embolism; Z79.01 Long term (current) use of anticoagulants; Z79.899 Other long term (current) drug therapy; Z96.611 Presence of right artificial shoulder joint; Z96.651 Presence of right artificial knee joint; Z95.810 Presence of automatic (implantable) cardiac defibrillator; Z98.890 Other specified postprocedural states; Z88.5 Allergy status to narcotic agent; Z91.041 Radiographic dye allergy status; Z88.8 Allergy status to other drugs, medicaments and biological substances
CPT/HCPCS: 28308; 36415; 73620; 80053; 81003; 82948; 85025; A4618; A6222; A6402; A6449; A7000; J0131; J0690; J1100; J2001; J2250; J2405; J2704; J2795; J3010; J3490; J7030; J7040; J7120; L3260; Z7506; Z7512; Z7610; 76000

== ENCOUNTER 2024-12-13 07:52 | Emergency (ER) | payer MEDICARE ==
[~2024-12-13] VITALS: Ht 167.6 cm; Wt 100.0 kg
[~2024-12-13 07:52] MED LIST changes: -cefazolin 2gm/D5W 100mL 100 ML IV ONE; -normal saline 1000ml 500 ML IV SCH
[2024-12-13 09:26] LABS: BASOPHILS % (AUTO) 0.6 % (0-1); EOSINOPHILS # (AUTO) 0.1 X10'3 (0-0.9); EOSINOPHILS % (AUTO) 2.2 % (0-6); HEMATOCRIT 37.7 % (35.0-45.0); HEMOGLOBIN 12.8 g/dl (12.0-16.0); LYMPHOCYTES # (AUTO) 1.3 X10'3 (1.1-4.8); LYMPHOCYTES % (AUTO) 29.1 % (21-51); MEAN CORPUSCULAR HEMOGLOBIN 32.1 PG (27.0-31.0); MEAN CORPUSCULAR HGB CONC 33.9 g/dL (33.0-36.5); MEAN CORPUSCULAR VOLUME 94.6 FL (78-98); MEAN PLATELET VOLUME 7.7 FL (7.4-10.4); MONOCYTES # (AUTO) 0.4 X10'3 (0-0.9); MONOCYTES % (AUTO) 8.2 % (2-12); NEUTROPHILS # (AUTO) 2.7 X10'3 (1.8-7.7); NEUTROPHILS % (AUTO) 59.9 % (42-75); PLATELET COUNT 147 X10'3 (140-440); RED BLOOD COUNT 3.99 X10'6 (4.20-5.60); RED CELL DISTRIBUTION WIDTH 13.4 % (11.5-14.5); WHITE BLOOD COUNT 4.5 X10'3 (4.5-11.0)
[2024-12-13 09:50] LABS: ALANINE AMINOTRANSFERASE 30 U/L (12-78); ALBUMIN 3.2 G/DL (3.4-5.0); ALBUMIN/GLOBULIN RATIO 0.9 (1.1-1.5); ALKALINE PHOSPHATASE 75 IU/L (46-116); ANION GAP 6 (8-16); ASPARTATE AMINO TRANSFERASE 23 U/L (10-37); BILIRUBIN,TOTAL 0.7 MG/DL (0.1-1.0); BLOOD UREA NITROGEN 40 MG/DL (7-18); CALCIUM 9.3 MG/DL (8.5-10.1); CHLORIDE 108 MMOL/L (99-107); CREATININE 1.74 MG/DL (0.40-0.90); POTASSIUM 4.7 MMOL/L (3.5-5.1); SODIUM 140 MMOL/L (135-145); TOTAL PROTEIN 6.9 G/DL (6.4-8.2); eCRCL 21 ML/MIN; eGFR 28 ML/MIN
[2024-12-13 09:52] LABS: GLUCOSE 112 MG/DL (70-104)
[2024-12-13 10:00] LABS: PRO BRAIN NATRIURETIC PEPTIDE 773 PG/ML (0-450)
[2024-12-13 10:46] VITALS: BP 131/65; PULSE 60; RESP 14; TEMP 97.9; O2SAT 98
== END 2024-12-13 11:16 | disposition home or self-care (01) ==
LOC: ER 07:53
DX: M25.512 Pain in left shoulder (principal); R68.84 Jaw pain; I10 Essential (primary) hypertension; I48.91 Unspecified atrial fibrillation; J44.9 Chronic obstructive pulmonary disease, unspecified; G47.30 Sleep apnea, unspecified; Z86.711 Personal history of pulmonary embolism; Z95.0 Presence of cardiac pacemaker; F12.90 Cannabis use, unspecified, uncomplicated; Z60.2 Problems related to living alone; Z72.89 Other problems related to lifestyle; Z98.890 Other specified postprocedural states; Z79.899 Other long term (current) drug therapy; Z91.041 Radiographic dye allergy status; Z88.8 Allergy status to other drugs, medicaments and biological substances; Z88.5 Allergy status to narcotic agent
CPT/HCPCS: 36415; 71045; 80053; 83880; 84484; 85025; 93005; 99285